=== PATIENT | male | born 1950 | race Two or more races ===

== ENCOUNTER 2016-07-08 09:00 | Outpatient (CLI) | payer MEDICARE, OTHER | END 2016-07-08 09:01 | disposition home or self-care (01) | DX: Z12.2 Encounter for screening for malignant neoplasm of respiratory organs (principal); Z13.6 Encounter for screening for cardiovascular disorders; I71.4 Abdominal aortic aneurysm, without rupture; Z87.891 Personal history of nicotine dependence | CPT/HCPCS: 76706; G0297 ==

== ENCOUNTER 2020-01-08 16:54 | Emergency (ER) | payer MEDICARE ==
--- NOTE | 2020-01-08 18:04 | ED Physician Documentation ---
History of Present Illness - Stated complaint Stated Complaint: BODY ACHE, RUNNY NOSE, FEVER - Chief complaint Chief Complaint: Fever - History obtained from History obtained from: Patient, Family - Additonal information Additional information: 69-year-old gentleman with history of asthma, remote appendectomy, TURP, otherwise very healthy. He became sick yesterday with body aches, malaise developed some abdominal cramps and pain. Mild constipation. No cough or increased shortness of breath. No sick contacts. He does have a runny nose and a temperature to 99.9 at home, he notes that his usual temperature is 97.8. Review of Systems Ten Systems: 10 systems reviewed and negative Constitutional: reports: Fever, Chills, Myalgias, Fatigue Nose: reports: Rhinorrhea / runny nose Throat: denies: Sore throat Cardiac: denies: Chest pain / pressure, Palpitations Respiratory: denies: Dyspnea, Cough GI: reports: Abdominal Pain, Constipation. denies: Nausea, Hematemesis, Bloody / black stool PD PAST MEDICAL HISTORY - Past Medical History Respiratory: Emphysema : Benign prostate hypertrophy - Past Surgical History Ortho: Spine surgery - Present Medications Home Medications: Ambulatory Orders Medication Instructions Recorded Confirmed Amox/Clav 875/125 [Augmentin] 1 each PO Q12H #14 tablet 01/08/20 - Allergies Allergies/Adverse Reactions: Allergies Allergy/AdvReac Type Severity Reaction Status Date / Time No Known Drug Allergies Allergy Verified 01/08/20 17:56 PD ED PE NORMAL - Vitals Vital signs reviewed: Yes - General General: Alert and oriented X 3, No acute distress - HEENT HEENT: PERRL, EOMI - Neck Neck: Supple, no meningeal sign, No bony TTP - Cardiac Cardiac: RRR, No murmur - Respiratory Respiratory: No respiratory distress, Clear bilaterally - Abdomen Abdomen: Other (Mild lower abdominal tenderness without surgical signs) - Back Back: No CVA TTP, No spinal TTP - Derm Derm: Normal color, Warm and dry - Extremities Extremities: No edema, No calf tenderness / cord - Neuro Neuro: Alert and oriented X 3, Normal speech Results - Vitals Vitals: Vital Signs - 24 hr 01/08/20 01/08/20 01/08/20 17:42 19:46 20:23 Temperature 36.3 C L 36.9 C Heart Rate 98 73 74 Respiratory 18 16 18 Rate Blood Pressure 132/90 H 136/88 H 147/83 H O2 Saturation 99 97 94 Oxygen O2 Source Room air - Labs Labs: Laboratory Tests 01/08/20 01/08/20 01/08/20 18:15 18:15 18:30 WBC 16.1 H RBC 5.69 Hgb 17.0 Hct 52.1 H MCV 91.6 MCH 29.9 MCHC 32.6 RDW 13.7 Plt Count 292 MPV 9.7 Neut # (Auto) 12.2 H Lymph # (Auto) 2.1 [place] # (Auto) 1.3 H Eos # (Auto) 0.3 Baso # (Auto) 0.1 Absolute Nucleated RBC 0.00 Nucleated RBC % 0.0 Sodium 140 Potassium 4.3 Chloride 101 Carbon Dioxide 29 Anion Gap 10.0 BUN 24 H Creatinine 1.1 Estimated GFR (MDRD) 66 L Glucose 136 H Calcium 10.0 Total Bilirubin 1.1 H AST 18 ALT 24 Alkaline Phosphatase 75 Total Protein 7.4 Albumin 4.1 Globulin 3.3 Albumin/Globulin Ratio 1.2 Lipase 32 Urine Color YELLOW Urine Clarity CLEAR Urine pH 5.0 Ur Specific [place] >=1.030 H Urine Protein NEGATIVE Urine Glucose (UA) NEGATIVE Urine Ketones NEGATIVE Urine Occult Blood NEGATIVE Urine Nitrite NEGATIVE Urine Bilirubin NEGATIVE Urine Urobilinogen 0.2 (NORMAL) Ur Leukocyte Esterase NEGATIVE Ur Microscopic Review NOT INDICATED Urine Culture Comments NOT INDICATED Nasal Adenovirus (PCR) Nasal B. parapertussis DNA (PCR) Nasal Coronavir 229E PCR Nasal Coronavir HKU1 PCR Nasal Coronavir NL63 PCR Nasal Coronavir OC43 PCR Nasal Enterovir/Rhinovir PCR Nasal Influenza B PCR Nasal Influenza A PCR Nasal Parainfluen 1 PCR Nasal Parainfluen 2 PCR Nasal Parainfluen 3 PCR Nasal Parainfluen 4 PCR Nasal RSV (PCR) Nasal B.pertussis DNA PCR Nasal C.pneumoniae (PCR) [place] Human Metapneumo PCR Nasal M.pneumoniae (PCR) Nasal SARS-CoV-2 (PCR) 01/08/20 18:35 WBC RBC Hgb Hct MCV MCH MCHC RDW Plt Count MPV Neut # (Auto) Lymph # (Auto) [place] # (Auto) Eos # (Auto) Baso # (Auto) Absolute Nucleated RBC Nucleated RBC % Sodium Potassium Chloride Carbon Dioxide Anion Gap BUN Creatinine Estimated GFR (MDRD) Glucose Calcium Total Bilirubin AST ALT Alkaline Phosphatase Total Protein Albumin Globulin Albumin/Globulin Ratio Lipase Urine Color Urine Clarity Urine pH Ur Specific [place] Urine Protein Urine Glucose (UA) Urine Ketones Urine Occult Blood Urine Nitrite Urine Bilirubin Urine Urobilinogen Ur Leukocyte Esterase Ur Microscopic Review Urine Culture Comments Nasal Adenovirus (PCR) NOT DETECTED Nasal B. parapertussis DNA (PCR) NOT DETECTED Nasal Coronavir 229E PCR NOT DETECTED Nasal Coronavir HKU1 PCR NOT DETECTED Nasal Coronavir NL63 PCR NOT DETECTED Nasal Coronavir OC43 PCR NOT DETECTED Nasal Enterovir/Rhinovir PCR NOT DETECTED Nasal Influenza B PCR NOT DETECTED Nasal Influenza A PCR NOT DETECTED Nasal Parainfluen 1 PCR NOT DETECTED Nasal Parainfluen 2 PCR NOT DETECTED Nasal Parainfluen 3 PCR NOT DETECTED Nasal Parainfluen 4 PCR NOT DETECTED Nasal RSV (PCR) NOT DETECTED Nasal B.pertussis DNA PCR NOT DETECTED Nasal C.pneumoniae (PCR) NOT DETECTED [place] Human Metapneumo PCR NOT DETECTED Nasal M.pneumoniae (PCR) NOT DETECTED Nasal SARS-CoV-2 (PCR) NOT DETECTED PD MEDICAL DECISION MAKING - ED course ED course: 69-year-old gentleman presents with low-grade fevers, left lower quadrant tenderness. Found to have diverticulitis on CT. We participated in shared decision making and I discussed new and increasing evidence that going forward antibiotics may not be the standard of care for diverticulitis but certainly have been in the past. He definitely wanted antibiotics which is not unreasonable given that his white count is higher than the average seen in most of the studies examining this. Departure - Departure Disposition: 01 Home, Self Care Clinical Impression: Diverticulitis Condition: Good Record reviewed to determine appropriate education?: Yes Instructions: ED Diverticulitis Prescriptions: Amox/Clav 875/125 [Augmentin] 1 each PO Q12H #14 tablet Comments: You were seen today for abdominal pain, low-grade fevers. We found that you had uncomplicated diverticulitis. We have chosen an antibiotic approach based on shared decision making. Return if worsening. CT did show incidental findings including the small abdominal aortic aneurysm which was already known about. You should have an ultrasound every year per your doctor's instructions to monitor this. It is not big enough to need any specific intervention at this point. Also talk with your doctor about having a colonoscopy in approximately 8 weeks. Discharge Date/Time: 01/08/20 20:25
[2020-01-08] MEDS ORDERED: IOVERSOL 320 100 ML VIAL IVP ONE ×2 (18:13→20:32)
[2020-01-08 18:28] LABS: BASOPHILS # (AUTO) 0.1 10^3/uL (0.0-0.1); BASOPHILS % (AUTO) 0.5 %; EOSINOPHILS # (AUTO) 0.3 10^3/uL (0.0-0.7); EOSINOPHILS % (AUTO) 1.8 %; LYMPHOCYTES # (AUTO) 2.1 10^3/uL (1.5-3.5); LYMPHOCYTES % (AUTO) 13.3 %; MEAN CORPUSCULAR HEMOGLOBIN 29.9 pg (27.0-31.0); MEAN CORPUSCULAR HGB CONC 32.6 g/dL (32.0-36.0); MEAN CORPUSCULAR VOLUME 91.6 fL (80.0-94.0); MEAN PLATELET VOLUME 9.7 fL (7.4-11.4); MONOCYTES # (AUTO) 1.3 10^3/uL (0.0-1.0); MONOCYTES % (AUTO) 8.3 %; NEUTROPHILS # (AUTO) 12.2 10^3/uL (1.5-6.6); NEUTROPHILS % (AUTO) 75.7 %; PLT - PLATELET COUNT 292 10^3/uL (130-450); RED BLOOD COUNT 5.69 10^6/uL (4.70-6.10); RED CELL DISTRIBUTION WIDTH 13.7 % (12.0-15.0); WHITE BLOOD COUNT 16.1 x10^3/uL (4.8-10.8)
[2020-01-08 18:42] LABS: ALBUMIN 4.1 g/dL (3.2-5.5); ALBUMIN/GLOBULIN RATIO 1.2 (1.0-2.2); BILIRUBIN,TOTAL 1.1 mg/dL (0.2-1.0); CREATININE 1.1 mg/dL (0.6-1.2); TOTAL PROTEIN 7.4 g/dL (6.7-8.2)
[2020-01-08 18:47] LABS: BILIRUBIN,URINE NEGATIVE (NEGATIVE); GLUCOSE, URINE (UA) NEGATIVE (NEGATIVE); KETONES,URINE (UA) NEGATIVE (NEGATIVE); LEUKOCYTE ESTERASE, URINE NEGATIVE (NEGATIVE); NITRITE,URINE NEGATIVE (NEGATIVE); OCCULT BLOOD,URINE NEGATIVE (NEGATIVE); PROTEIN,URINE NEGATIVE (NEGATIVE); UROBILINOGEN,URINE 0.2 (NORMAL) E.U./dL (NORMAL)
[2020-01-08 18:55] LABS: CLARITY,URINE CLEAR (CLEAR)
--- NOTE | 2020-01-08 20:01 | CT Report ---
PROCEDURE: Abdomen/Pelvis W INDICATIONS: IV only, low abd pain CONTRAST: IV CONTRAST: Optiray 320 ml: 100 PO CONTRAST: *NO PO CONTRAST TECHNIQUE: After the administration of contrast, 5 mm thick sections acquired from the diaphragms to the sym physis. 5 mm thick coronal and sagittal reformats were acquired. For radiation dose reduction, the following was used: automated exposure control, adjustment of mA and/or kV according to patient size . COMPARISON: None. FINDINGS: Image quality: Excellent. ABDOMEN: Lung bases: Lung bases are clear. Heart size is normal. Prostatic calcifications noted in the visua lized right coronary vasculature. Solid organs: Liver and spleen are normal in size and enhancement. Gallbladder is within normal zuñiga its Biliary system is non dilated. Pancreas enhances normally. No adrenal nodules. Kidneys demons trate normal size and enhancement, without hydronephrosis. Peritoneum and bowel: Bowel loops demonstrate normal caliber. Scattered diverticuli noted in the lef t colon and the sigmoid colon. Mild cervical fracture wall thickening with adjacent inflammation note d in the mid sigmoid colon region are multiple diverticuli compatible with diverticulitis. No peridiv erticular abscess. No free fluid or free air. No free fluid or air. The appendix is surgically absent Nodes and vessels: No retroperitoneal or mesenteric adenopathy by size criteria. 3.5 x 3.6 cm infrar enal abdominal aortic aneurysm. Scattered atherosclerotic calcifications are noted in the abdominal a nd pelvic vasculature. Miscellaneous: No ventral hernias. PELVIS: Genitourinary: Bladder wall thickness is normal. Miscellaneous: No inguinal adenopathy. All bilateral fat-containing hernias. Bones: No suspicious bony lesions. No vertebral body compression fractures. Spine degenerative disc disease and facet arthropathy are noted. IMPRESSION: 1. Sigmoid colon diverticulitis. 2. No abscess. 3. No free fluid or free air. 4. 3.5 x 3.6 cm infrarenal abdominal aortic aneurysm. 5. Atherosclerosis including the visualized right coronary vasculature. Reviewed by: Duyen Patel MD, PhD on 01/08/2020 7:59 PM PDT Approved by: Duyen Patel MD, PhD on 01/08/2020 7:59 PM PDT Station ID: [id number]
[2020-01-08] MEDS ORDERED: AMOX/CLAV 875 MG/125 MG TABLET PO STA (20:09)
[2020-01-08 20:11] LABS: C. PNEUMONIAE- RESP PCR PANEL NOT DETECTED
[2020-01-08 20:25] VITALS: BP 147/83
== END 2020-01-08 20:25 | disposition home or self-care (01) ==
LOC: ED 16:54
DX: K57.32 Diverticulitis of large intestine without perforation or abscess without bleeding (principal); I71.4 Abdominal aortic aneurysm, without rupture; J43.9 Emphysema, unspecified
CPT/HCPCS: 36415; 74177; 80053; 81003; 83690; 85025; 87631; 99284; A9270; Q9967; 0202U; 81001; 87086

== ENCOUNTER 2021-07-16 10:34 | Outpatient (CLI) | payer MEDICARE ==
--- NOTE | 2021-07-16 12:10 | CT Report ---
PROCEDURE: Low Dose Lung Cancer Screen INDICATIONS: FORMER SMOKER TECHNIQUE: Noncontrast low-dose images were acquired from the pulmonary apices to the posterior costophrenic ang les. Multiplanar MIP reformats were then acquired. For radiation dose reduction, the following was used: automated exposure control, adjustment of mA and/or kV according to patient size. COMPARISON: CT chest without, 07/08/2016. FINDINGS: Image quality: Excellent. Lungs and pleura: There are small left upper lobe lung nodules, minimally changed in size since 03/2016. Nodule 1: 4 mm; left upper lobe anterior; series 4 image 93. Nodule 2: 5 mm; left upper lobe lateral; series 4 image 132. Mild emphysema. There are scars and atelectasis in right middle lobe and lingula. Mediastinum: Heart size is normal. Severe coronary artery calcification. No pericardial effusion. M ildly enlarged mediastinal lymph nodes are present, measuring up to 1.2 cm in short axis and unchange d in size, most likely benign active lymph nodes. Thoracic aorta and central pulmonary arteries are normal in size. Esophagus is normal in caliber. No hiatal hernia. Bones and chest wall: No suspicious bony lesions. No vertebral body compression fractures. No axil emily or supraclavicular adenopathy by size criteria. The thyroid is normal in size and there are no incidental findings. Abdomen: Visualized upper abdomen solid organs and bowel loops appear normal in the absence of contr ast. IMPRESSION: 1. Small left upper lobe nodules are minimally changed since 07/08/2016, portable with benign nodules . ACR Lung RADS category 2. Recommend screening lung CT in 12 months. 2. Mildly enlarged mesenteric lymph nodes, most likely reactive. 3. Severe coronary artery atherosclerosis. Fleischner Society criteria for SOLID lung nodule followup. Nodule size (mm)Low-risk patientHigh-risk patient "d4No follow-up neededFollow-up at 12 mo; if no change, no further follow-up >0-3Lyalgc-or CT at 12 mo; if no change, no further follow-up needed.Initial follow-up CT at 6-12 mo, then 18-24 mo if no change. >6-8Initial follow-up CT at 6-12 mo, then 18-24 mo if no change. Initial follow-up CT at 3-6 mo, then 9-12 mo and 24 mo if no change. >8Follow-up CT at 3, 9, 24 mo. Or PET and/or biopsy.Same as for low-risk pts. Reviewed by: Wild Dixon MD on 07/16/2021 11:08 AM JOSIE Approved by: Wild Dixon MD on 07/16/2021 11:08 AM JOSIE Station ID: [id number]
== END 2021-07-16 10:35 | disposition home or self-care (01) ==
LOC: DI 10:34
PROVIDERS: ATTEND Student in an Organized Health Care Education/Training Program
DX: Z12.2 Encounter for screening for malignant neoplasm of respiratory organs (principal); Z87.891 Personal history of nicotine dependence; R91.8 Other nonspecific abnormal finding of lung field; R59.0 Localized enlarged lymph nodes; I25.10 Atherosclerotic heart disease of native coronary artery without angina pectoris